=== PATIENT | male | born 1930 ===

== ENCOUNTER 2018-03-22 09:33 | Outpatient (CLI) | payer OTHER | END 2018-03-22 09:36 | disposition home or self-care (01) | LOC: RAD 09:33 | DX: J06.9 Acute upper respiratory infection, unspecified (principal); K21.9 Gastro-esophageal reflux disease without esophagitis; N41.9 Inflammatory disease of prostate, unspecified; E03.8 Other specified hypothyroidism; I10 Essential (primary) hypertension; N41.0 Acute prostatitis; M81.0 Age-related osteoporosis without current pathological fracture ==

== ENCOUNTER 2018-07-20 10:07 | Emergency (ER) | payer OTHER ==
[~2018-07-20] VITALS: Ht 172.7 cm; Wt 68.0 kg
== END 2018-07-20 14:00 | disposition home or self-care (01) ==
LOC: ER 10:07
DX: R35.0 Frequency of micturition (principal); M54.2 Cervicalgia; M25.562 Pain in left knee; M25.561 Pain in right knee

== ENCOUNTER → 2018-08-13 | Emergency (ER) | payer OTHER ==
[~2018-08-13] VITALS: Ht 165.1 cm; Wt 75.7 kg
== END | disposition home or self-care (01) ==
LOC: ER 17:22
DX: N39.498 Other specified urinary incontinence (principal)

== ENCOUNTER 2018-08-25 12:24 | Outpatient (CLI) | payer OTHER | END 2018-08-25 12:57 | disposition home or self-care (01) | LOC: LAB 12:24 | DX: K21.9 Gastro-esophageal reflux disease without esophagitis (principal); N41.8 Other inflammatory diseases of prostate; E03.8 Other specified hypothyroidism; M81.0 Age-related osteoporosis without current pathological fracture; H52.4 Presbyopia; H04.123 Dry eye syndrome of bilateral lacrimal glands; I11.9 Hypertensive heart disease without heart failure; I70.0 Atherosclerosis of aorta; Z68.30 Body mass index [BMI] 30.0-30.9, adult; N41.0 Acute prostatitis ==

== ENCOUNTER 2018-09-02 08:31 | Outpatient (CLI) | payer OTHER | END 2018-09-02 09:01 | disposition home or self-care (01) | LOC: TOM 08:31 | DX: R10.9 Unspecified abdominal pain (principal) | CPT/HCPCS: 74178; Q9965 ==

== ENCOUNTER 2019-03-07 09:44 | Outpatient (CLI) | payer OTHER | END 2019-03-07 09:45 | disposition home or self-care (01) | LOC: RAD 09:44 | DX: K40.30 Unilateral inguinal hernia, with obstruction, without gangrene, not specified as recurrent (principal); Z01.811 Encounter for preprocedural respiratory examination ==

== ENCOUNTER 2019-03-11 08:51 | Outpatient (CLI) | payer OTHER | END 2019-03-11 10:49 | disposition home or self-care (01) | LOC: LAB 08:51 | DX: K40.30 Unilateral inguinal hernia, with obstruction, without gangrene, not specified as recurrent (principal); Z01.812 Encounter for preprocedural laboratory examination ==

== ENCOUNTER 2019-03-22 05:20 | Day surgery (SDC) | payer OTHER | END 2019-03-22 17:20 | disposition home or self-care (01) | LOC: CIR.AMB 05:20 | DX: K40.30 Unilateral inguinal hernia, with obstruction, without gangrene, not specified as recurrent (principal) ==